=== PATIENT | female | born 1955 | race Caucasian/White ===

== ENCOUNTER 2022-01-14 09:29 | Day surgery (SDC) | payer MEDICARE, MEDICAID ==
[~2022-01-14] VITALS: Ht 157.5 cm; Wt 63.6 kg
[2022-01-14 09:45] VITALS: BP 134/90
[2022-01-14] MEDS ORDERED: DIAZ5TAB22 PO (10:34)
[2022-01-14] MEDS ORDERED: VILA10TA PO (10:34)
[2022-01-14] MEDS ORDERED: ALBU2TAB17 PO (10:34)
[2022-01-14] MEDS ORDERED: IPRA4AER IH (10:34)
[2022-01-14] MEDS ORDERED: FENO150C4 PO (10:34)
[2022-01-14] MEDS ORDERED: OMEP40CA21 PO (10:34)
[2022-01-14] MEDS ORDERED: LIOT25TA6 PO (10:34)
[2022-01-14] MEDS ORDERED: DONE-46 PO (10:34)
[2022-01-14] MEDS ORDERED: IXEK80AU2 (10:34)
[2022-01-14] MEDS ORDERED: MIRT7.5T11 PO (10:34)
[2022-01-14] MEDS ORDERED: MIDAZolam 1 MG/ML 5ML VIAL ONE (10:38)
[2022-01-14] MEDS ORDERED: fentaNYL/PF 50MCG/1 ML 2ML syringe ONE (10:38)
[2022-01-14] MEDS ORDERED: LIDOcaine Viscous 15ml cup ONE (10:38)
[2022-01-14] MEDS ORDERED: diphenhydrAMINE 50 mg/ml inj ONE (11:54)
[2022-01-14 12:15] VITALS: BP 111/58
[2022-01-14 12:25] VITALS: BP 121/61
[2022-01-14 12:35] VITALS: BP 137/63
[2022-01-14 12:45] VITALS: BP 119/62
== END 2022-01-14 13:00 | disposition home or self-care (01) ==
LOC: GI LAB 09:29
PROVIDERS: ATTEND Internal Medicine Gastroenterology
DX: K29.70 Gastritis, unspecified, without bleeding (principal); K44.9 Diaphragmatic hernia without obstruction or gangrene; K31.89 Other diseases of stomach and duodenum
CPT/HCPCS: 43239; J1200; J2250; J3010; J7030; Z7512; 88305; 99152; A4620

== ENCOUNTER 2022-04-13 13:26 | Emergency (ER) | payer MEDICARE, MEDICAID ==
[~2022-04-13] VITALS: Ht 157.5 cm; Wt 61.8 kg
[~2022-04-13 13:26] MED LIST: ALBU2TAB17 PO; DIAZ5TAB22 PO; DONE-46 PO; FENO150C4 PO; IPRA4AER IH; IXEK80AU2; LIOT25TA6 PO; MIRT7.5T11 PO; OMEP40CA21 PO; VILA10TA PO
[2022-04-13 13:47] VITALS: BP 139/59
[2022-04-13] MEDS ORDERED: CEPH250T PO (14:49)
[2022-04-13] MEDS ORDERED: NAPR-56 PO (14:49)
--- NOTE | 2022-04-13 14:54 | NUR ---
Donnie wrap applied to patinet right elbow per patients verbal order.
== END 2022-04-13 15:01 | disposition home or self-care (01) ==
LOC: ER 13:27
DX: M70.21 Olecranon bursitis, right elbow (principal); Z88.5 Allergy status to narcotic agent; Y93.89 Activity, other specified
CPT/HCPCS: 73080; 99283; A6449